=== PATIENT | male | born 1985 | race Caucasian/White ===

== ENCOUNTER 2023-01-07 05:36 | Emergency (ER) | payer OTHER ==
[~2023-01-07] VITALS: Ht 182.9 cm; Wt 81.6 kg
[2023-01-07 06:09] VITALS: BP 131/67; TEMP 98.1; O2SAT 98
== END 2023-01-07 06:20 | disposition home or self-care (01) ==
LOC: ER 05:36
DX: H93.12 Tinnitus, left ear (principal)